=== PATIENT | male | born 1960 | race Caucasian/White ===

== ENCOUNTER 2017-09-02 12:47 | Inpatient (IN) | payer MEDICARE, BC ==
--- NOTE | 2017-09-02 13:28 | ED ---
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 Patient states that he woke up in [place] night felt that he had some chills and started vomiting. Patient states he had a large amount of emesis and is had some discomfort in his throat. He states that he feels that something is tearing or something is stabbing right side of his neck and throat region. Patient states that this prompted him to call 911 and when she went to the emergency Department in [place]. Patient states that he was given pain medication which has helped. He has no difficulty breathing at this time. Former tobacco user he does admit that he has been drinking more than usual. He states he does take large amount of medications for psychiatric disorders, hypertension. (Smooth Skelton) - Related Data Home Medications Medication Instructions Recorded Confirmed Aspirin EC [Ecotrin Low Dose] 81 mg PO DAILY 09/02/17 09/02/17 Calcium Citrate/Vitamin D3 1 tab PO DAILY 09/02/17 09/02/17 [Calcitrate + Vit D Caplet] Folic Acid 1 mg PO DAILY 09/02/17 09/02/17 HYDROcodone/APAP 7.5-325MG [[place] 1 tab PO Q6HR PRN 09/02/17 09/02/17 7.5-325] Iron 27mg 27 mg PO DAILY 09/02/17 09/02/17 Montelukast [Singulair] 10 mg PO DAILY 09/02/17 09/02/17 Naproxen Sodium [Aleve] 220 mg PO DAILY PRN 09/02/17 09/02/17 [place]-3 Acid Ethyl Esters [Lovaza] 2 gm PO BID 09/02/17 09/02/17 Omeprazole 20 mg PO BID 09/02/17 09/02/17 QUEtiapine [SEROquel] 200 mg PO HS 09/02/17 09/02/17 Ranitidine HCl 150 mg PO AC-BRKFST 09/02/17 09/02/17 Thermotabs 1 tab PO DAILY 09/02/17 09/02/17 Venlafaxine HCl [Effexor XR] 150 mg PO QAM 09/02/17 09/02/17 clonazePAM [KlonoPIN] 0.5 mg PO Q8H PRN 09/02/17 09/02/17 lamoTRIgine [LaMICtal] 150 mg PO BID 09/02/17 09/02/17 traMADol HCL [Ultram] 50 mg PO Q6HR PRN 09/02/17 09/02/17 Allergies Allergy/AdvReac Type Severity Reaction Status Date / Time No Known Allergies Allergy Verified 09/02/17 14:51 Review of Systems ROS Other: All systems not noted in ROS Statement are negative. <Smooth Skelton - Last Filed: 09/02/17 14:14> ROS Other: All systems not noted in ROS Statement are negative. <Jett Villalobos - Last Filed: 09/03/17 21:08> ROS Statement: Those systems with pertinent positive or pertinent negative responses have been documented in the HPI. Past Medical History Past Medical History: COPD, CVA/TIA, GERD/Reflux, Osteoarthritis (OA) Additional Past Medical History / Comment(s): Patent foramen ovale, distolyic disfunction, factor IV, spontaneous pneumo History of Any Multi-Drug Resistant Organisms: None Reported Past Surgical History: Adenoidectomy, Back Surgery, Joint Replacement, Tonsillectomy Additional Past Surgical History / Comment(s): deviated septum repair Past Psychological History: Anxiety, Bipolar, Depression Smoking Status: Former smoker Past Alcohol Use History: Abuse, Daily, Heavy Past Drug Use History: None Reported <Smooth Skelton - Last Filed: 09/02/17 14:14> General Exam Limitations: no limitations General appearance: alert, in no apparent distress Head exam: Present: atraumatic, normocephalic, normal inspection Eye exam: Present: normal appearance, PERRL, EOMI. Absent: scleral icterus, conjunctival injection, periorbital swelling ENT exam: Present: normal exam, normal oropharynx, mucous membranes moist, TM's normal bilaterally Neck exam: Present: normal inspection, tenderness (Mild tenderness the right anterior/lateral aspect), full ROM. Absent: meningismus, lymphadenopathy Respiratory exam: Present: normal lung sounds bilaterally. Absent: respiratory distress, wheezes, rales, rhonchi, stridor Cardiovascular Exam: Present: regular rate, normal rhythm, normal heart sounds. Absent: systolic murmur, diastolic murmur, rubs, gallop, clicks <Smooth Skelton - Last Filed: 09/02/17 14:14> Vital Signs 09/02/17 09/02/17 12:49 14:32 Temperature 99.1 F 98.7 F Pulse Rate 87 87 Respiratory 18 18 Rate Blood Pressure 150/96 133/93 O2 Sat by Pulse 98 99 Oximetry Medical Decision Making <Smooth Skelton - Last Filed: 09/02/17 14:14> - Lab Data Result diagrams: 09/03/17 07:03 09/03/17 07:03 <Jett Villalobos - Last Filed: 09/03/17 21:08> - Medical Decision Making I saw this patient in conjunction with the physician marketing communications assistant. I performed independent history and physical exam. Agree with case management. Patient's 56-year-old man found to have right sided laryngeal mass after CT at the outside hospital. I discussed case with Dr. Dover who states that the patient probably could be seen in the clinic Sunday morning. I discussed this with the patient, but there is concern about loss of the patient to follow-up, as he does drink quite heavily. Further history from the patient reveals that indeed he may have had something going on in this area for a number of years. He states that he had had an endoscopy with a Dr. De Souza, who has subsequently retired. States that Dr. De Souza would told him that there was a concern about cancer, but the patient did not have further follow-up at that time. In addition there is concern that the patient stops drinking he may develop on DTs, and therefore patient will be admitted on Ativan protocol with consultation for ENT workup. (Jett Villalobos) Disposition <Smooth Skelton - Last Filed: 09/02/17 14:14> <Jett Villalobos - Last Filed: 09/03/17 21:08> Clinical Impression: Hypopharyngeal mass, Alcoholic, Nausea & vomiting Disposition: ADMITTED IP TO THIS HOSP Condition: Stable
[2017-09-02] MEDS ORDERED: NALOXONE 0.4 MG/ML 1 ML VIAL IV PRN ×2 (14:15→15:19)
[2017-09-02] MEDS ORDERED: LORazepam 2 MG/ML INJ IV STA (14:15)
[2017-09-02] MEDS ORDERED: LORazepam 2 MG/ML INJ IV PRN ×6 (14:16→15:45)
[2017-09-02] MEDS: SODIUM CHLORIDE 0.9% 1,000 ML IV SCH (14:31)
[2017-09-02] MEDS ORDERED: ONDANSETRON 4 MG/2 ML VIAL IVP PRN (15:19)
[2017-09-02] MEDS ORDERED: THIAMINE 100 MG/ML 2 ML VIAL IM STA (15:45)
--- NOTE | 2017-09-02 15:45 | P.HPIM ---
History of Present Illness H&P Date: 09/02/17 Chief Complaint: Vomiting and neck pain 56-year-old male presents emergency department via EMS from [facility] because of concern for pharyngeal mass. Patient stated that he woke up in middle of the night last night, felt that he had some chills and started vomiting. Patient describes the vomiting as projectile, forceful and he expelled large amount of emesis when he had it. No hematemesis. He has also been having some intermittent abdominal pain and diarrhea. After he threw up last night he started having severe right neck pain and it was severely difficult for him to swallow anything. In the ER he tried to pass some liquids but he couldn't because of pain. The pain feels like tearing or something is stabbing right side of his neck and throat region He also has been having general shaking and aching. He drinks a pint of vodka every day and his last drink was yesterday. He denied chest pain or shortness of breath. Computed tomography scan of the neck with IV contrast done at [facility] showed bulky right-sided hypopharyngeal/laryngeal mass measuring approximately 5 x 3 x 1.5 cm with its epicenter at the level of the right piriformis sinus. The lesion tracts cephalad into the lower hypopharynx, laterally into the lateral laryngeal wall, caudally into the false cord and probably the true cord as well as also medially into the right side of the epiglottic base. There is also mild focal thickening of the right lateral aspect of the epiglottis. Upper airway and the trachea are widely patent. There is also increased between C6 and C7 vertebral bodies and the posterior wall of the trachea that appears in part to be related to a slightly redundant and thick-walled upper cervical esophagus. There are a few sections on which it appears small fluid bolus stuck in the upper esophagus. That could alternatively be a mass. No cervical lymphadenopathy. At [place] emergency department patient was somewhat agitated and shaky, had to be treated with some Ativan. He was also given some Solu-Medrol 125 mg IV because of the above mass. Review of Systems 12 point review of system performed, negative except HPI Past Medical History Past Medical History: COPD, CVA/TIA, GERD/Reflux, Osteoarthritis (OA) Additional Past Medical History / Comment(s): Patent foramen ovale, distolyic disfunction, factor IV, spontaneous pneumo History of Any Multi-Drug Resistant Organisms: None Reported Past Surgical History: Adenoidectomy, Back Surgery, Joint Replacement, Tonsillectomy Additional Past Surgical History / Comment(s): deviated septum repair Past Psychological History: Anxiety, Bipolar, Depression Smoking Status: Former smoker Past Alcohol Use History: Abuse, Daily, Heavy Past Drug Use History: None Reported Medications and Allergies Home Medications Medication Instructions Recorded Confirmed Type Aspirin EC [Ecotrin Low Dose] 81 mg PO DAILY 09/02/17 09/02/17 History Calcium Citrate/Vitamin D3 1 tab PO DAILY 09/02/17 09/02/17 History [Calcitrate + Vit D Caplet] Folic Acid 1 mg PO DAILY 09/02/17 09/02/17 History HYDROcodone/APAP 7.5-325MG [[place] 1 tab PO Q6HR PRN 09/02/17 09/02/17 History 7.5-325] Iron 27mg 27 mg PO DAILY 09/02/17 09/02/17 History Montelukast [Singulair] 10 mg PO DAILY 09/02/17 09/02/17 History Naproxen Sodium [Aleve] 220 mg PO DAILY PRN 09/02/17 09/02/17 History [place]-3 Acid Ethyl Esters [Lovaza] 2 gm PO BID 09/02/17 09/02/17 History Omeprazole 20 mg PO BID 09/02/17 09/02/17 History QUEtiapine [SEROquel] 200 mg PO HS 09/02/17 09/02/17 History Ranitidine HCl 150 mg PO AC-BRKFST 09/02/17 09/02/17 History Thermotabs 1 tab PO DAILY 09/02/17 09/02/17 History Venlafaxine HCl [Effexor XR] 150 mg PO QAM 09/02/17 09/02/17 History clonazePAM [KlonoPIN] 0.5 mg PO Q8H PRN 09/02/17 09/02/17 History lamoTRIgine [LaMICtal] 150 mg PO BID 09/02/17 09/02/17 History traMADol HCL [Ultram] 50 mg PO Q6HR PRN 09/02/17 09/02/17 History Allergies Allergy/AdvReac Type Severity Reaction Status Date / Time No Known Allergies Allergy Verified 09/02/17 14:51 Physical Exam Vitals: Vital Signs Temp Pulse Resp BP Pulse Ox 09/02/17 14:32 98.7 F 87 18 133/93 99 09/02/17 12:49 99.1 F 87 18 150/96 98 Intake and Output 09/02/17 09/02/17 09/02/17 06:59 14:59 22:59 Other: Weight 88.451 kg Constitutional: No acute distress, conversant, pleasant Eyes:Anicteric sclerae, moist conjunctiva, no lid-lag, PERRLA, ENMT: Oropharynx clear, no erythema, exudates Neck: Severe tenderness in the right side of the neck and submandibular areas. Otherwise neck is supple, FROM, no masses, or JVD, No carotid bruits, No thyromegaly Lungs: Clear to auscultation, Clear to percussion, Normal respiratory effort, no accessory muscle use Cardiovascular: Heart regular in rate and rhythm, No murmurs, gallops, or rubs, No peripheral edema Abdominal: Soft, Nontender, no guarding, rebound or rigidity, Normoactive bowel sounds, No hepatomegaly, No splenomegaly, No palpable mass Skin: Normal temperature, tone, texture, turgor, no induration, No subcutaneous nodules, No rash, lesions, No ulcers Extremities: No digital cyanosis, No clubbing, Pedal pulses intact and symmetrical, Radial pulses intact and symmetrical, No calf tenderness Psychiatric: Alert and oriented to person, place and time, appropriate affect, intact judgement Neuro: Muscles Strength 5/5 in all 4 extremities, Sensation to light touch grossly present throughout, Cranial nerves II-XII grossly intact, no focal sensory deficits Assessment and Plan Plan: #1 Neck mass: Labs and imaging results from the outside facility reviewed Case discussed with ENT in the emergency department, ENT is willing to do a laryngoscopy with biopsy. #2 Dysphagia Unclear if he truly has an upper esophageal mass Consult GI Clear liquid diet for now Swallow evaluation IV fluids #3 EtOH abuse/at risk for delirium tremens [facility] protocol #3 History of TIA, GERD/Reflux, history of diastolic dysfunction/history of osteoporosis/history of factor V Leiden/Osteoarthritis (OA), bipolar disorder/ anxiety: Stable Hold aspirin in anticipation for possible biopsy Resume rest of home medications
[2017-09-02] MEDS ORDERED: THIAMINE 100 MG TAB PO SCH (17:00)
[2017-09-02 17:08] VITALS: BMI 27.1
[2017-09-02] MEDS: THIAMINE 100 MG TAB PO SCH (18:12)
[2017-09-02] MEDS: PANTOPRAZOLE 40 MG TABLET PO SCH (18:12)
--- NOTE | 2017-09-02 18:25 | P.GSCN ---
History of Present Illness Consult date: 09/02/17 Reason for Consult: Throat swelling Requesting physician: Dennis Jackson History of present illness: This is a 56-year-old white male who suffers from fibromyalgia and takes opioids for chronic pain. He also drinks a large amount of alcohol and has had excessive consumption for at least 5 years. Patient tells me that yesterday evening he started having some chills but no throat symptoms and he ate a pizza and drank a pint of vodka. He then started having nausea and vomiting and vomited quite severely. He developed a throat pain in the morning and some difficulty swallowing and with the [facility] for evaluation. X-ray of the neck and CAT scan evaluation shows a swelling and possible mass. I've been asked to consult regarding these findings. The patient tells me that the throat pain is much improved and is able to swallow. He has had issues with heartburn. He is currently being treated for alcohol withdrawal. He did smoke in the past and has a [id number] history of smoking but quit when he was 29 years of age. Review of Systems - Constitutional Reports chronic pain, Reports fatigue, Reports lethargy, Denies anorexia - EENT Ears, nose, mouth and throat: Reports as per HPI - Cardiovascular Reports decreased exercise tolerance, Reports lightheadedness - Respiratory Denies hemoptysis - Gastrointestinal Reports heartburn, Denies coffee ground emesis, Denies excessive gas - Genitourinary Denies flank pain, Denies kidney stones - Musculoskeletal Musculoskeleta Comment(s): osteoporosis - Integumentary Denies boils - Neurological Denies balance difficulties - Psychiatric Denies hallucinations - Endocrine Denies deepening of the voice - Hematologic/Lymphatic Denies easy bleeding - Allergic/Immunologic Denies allergic rhinitis Past Medical History Past Medical History: COPD, CVA/TIA, GERD/Reflux, Osteoarthritis (OA) Additional Past Medical History / Comment(s): Patent foramen ovale, distolyic disfunction, factor IV, spontaneous pneumo History of Any Multi-Drug Resistant Organisms: None Reported Past Surgical History: Adenoidectomy, Back Surgery, Joint Replacement, Tonsillectomy Additional Past Surgical History / Comment(s): deviated septum repair Past Psychological History: Anxiety, Bipolar, Depression Smoking Status: Former smoker Past Alcohol Use History: Abuse, Daily, Heavy Past Drug Use History: None Reported Medications and Allergies Home Medications Medication Instructions Recorded Confirmed Type Aspirin EC [Ecotrin Low Dose] 81 mg PO DAILY 09/02/17 09/02/17 History Calcium Citrate/Vitamin D3 1 tab PO DAILY 09/02/17 09/02/17 History [Calcitrate + Vit D Caplet] Folic Acid 1 mg PO DAILY 09/02/17 09/02/17 History HYDROcodone/APAP 7.5-325MG [[place] 1 tab PO Q6HR PRN 09/02/17 09/02/17 History 7.5-325] Iron 27mg 27 mg PO DAILY 09/02/17 09/02/17 History Montelukast [Singulair] 10 mg PO DAILY 09/02/17 09/02/17 History Naproxen Sodium [Aleve] 220 mg PO DAILY PRN 09/02/17 09/02/17 History [place]-3 Acid Ethyl Esters [Lovaza] 2 gm PO BID 09/02/17 09/02/17 History Omeprazole 20 mg PO BID 09/02/17 09/02/17 History QUEtiapine [SEROquel] 200 mg PO HS 09/02/17 09/02/17 History Ranitidine HCl 150 mg PO AC-BRKFST 09/02/17 09/02/17 History Thermotabs 1 tab PO DAILY 09/02/17 09/02/17 History Venlafaxine HCl [Effexor XR] 150 mg PO QAM 09/02/17 09/02/17 History clonazePAM [KlonoPIN] 0.5 mg PO Q8H PRN 09/02/17 09/02/17 History lamoTRIgine [LaMICtal] 150 mg PO BID 09/02/17 09/02/17 History traMADol HCL [Ultram] 50 mg PO Q6HR PRN 09/02/17 09/02/17 History Allergies Allergy/AdvReac Type Severity Reaction Status Date / Time No Known Allergies Allergy Verified 09/02/17 14:51 Surgical - Exam Osteopathic Statement: *. No significant issues noted on an osteopathic structural exam other than those noted in the History and Physical/Consult. Vital Signs Temp Pulse Resp BP Pulse Ox 99.1 F 87 18 150/96 98 09/02/17 12:49 09/02/17 12:49 09/02/17 12:49 09/02/17 12:49 09/02/17 12:49 - General well developed, well nourished, no distress - Eyes PERRL, normal ocular movement - ENT normal pinna, normal nares, normal mucosa, no hearing loss, no congestion - Neck no masses, no bruits, trachea midline, no lymphadectomy, no venous distension - Respiratory normal expansion, normal respiratory effort - Abdomen Abdomen: soft, tender - Integumentary no rash, no growths - Neurologic normal coordination, normal sensation - Musculoskeletal normal gait - Psychiatric oriented to time, oriented to person, oriented to place, speech is normal, memory intact Assessment and Plan (1) Hypopharyngitis Current Visit: Yes Status: Acute Code(s): J02.9 - ACUTE PHARYNGITIS, UNSPECIFIED SNOMED Code(s): 568367963 (2) Dysphagia Current Visit: Yes Status: Acute Code(s): R13.10 - DYSPHAGIA, UNSPECIFIED SNOMED Code(s): 47791542 Plan: Examination including a flexible laryngoscopy reveals some arytenoid swelling. The swelling is erythematous. There is no evidence of a tumor or mass. He tells me that his throats feeling much better and most likely the swelling was from his severe vomiting. I'm recommending watchful waiting. I've given him my card I told him I would like to see him in the office as outpatient for a repeat examination of the throat. At this time, there is no discrete tumors or masses and biopsy is not recommended. A repeat examination on outpatient basis is strongly recommended. Time with Patient: Greater than 30
--- NOTE | 2017-09-02 18:27 | P.OP ---
Date of Procedure: 09/02/17 Preoperative Diagnosis: Hypopharyngeal mass seen on computed tomography scan Postoperative Diagnosis: Arytenoid swelling right side Procedure(s) Performed: Flexible nasopharyngeal laryngoscopy Anesthesia: none Surgeon: Trenton Dover Estimated Blood Loss (ml): 0 Pathology: none sent Condition: stable Disposition: PACU Indications for Procedure: Patient had severe vomiting last night and had throat complaints after vomiting. CAT scan of the neck revealed a possible tumor. Examination is recommended Operative Findings: Patient had a large amount of swelling to the right arytenoid. There is no evidence of a tumor or mass. I was unable to evaluate the esophagus. Description of Procedure: This patient was placed in a sitting position. On the NF type GP nasopharyngoscope was inserted into the patient's right nares we followed the floor the nose into the nasopharynx and oropharynx and hypopharynx. There was some arytenoid swelling on the right along with hyperemia. No discrete tumors or masses were noted of the nasopharynx oropharynx or hypopharynx. The swelling appeared to be secondary to his reflux.
[2017-09-02] MEDS: clonazePAM 0.5 MG TAB PO PRN (21:53)
[2017-09-02] MEDS: QUEtiapine 200 MG TAB PO SCH (21:54)
[2017-09-02] MEDS: lamoTRIgine 100 MG TAB PO SCH (21:54)
[2017-09-03] MEDS: SODIUM CHLORIDE 0.9% 1,000 ML IV SCH ×2 (03:11→16:23)
[2017-09-03] MEDS: HYDROcodone/APAP 7.5-325MG 1 EACH TAB PO PRN ×2 (07:17→21:55)
[2017-09-03] MEDS ORDERED: FAMOTIDINE 20 MG TAB PO SCH (07:30)
[2017-09-03 08:06] LABS: Basophils % (A) 0 %; Eosinophils % (A) 0 %; HCT 36.5 % (39.0-53.0); HGB 12.6 gm/dL (13.0-17.5); Lymphocytes # (A) 0.7 k/uL (1.0-4.8); Lymphocytes % (A) 12 %; MCH 31.2 pg (25.0-35.0); MCHC 34.6 g/dL (31.0-37.0); MCV 90.2 fL (80.0-100.0); Mean Platelet Volume 7.2; Monocytes # (A) 0.3 k/uL (0-1.0); Monocytes % (A) 6 %; Neutrophils # (A) 4.3 k/uL (1.3-7.7); Neutrophils % (A) 80 %; Platelet Count 166 k/uL (150-450); RBC 4.05 m/uL (4.30-5.90); RDW 12.1 % (11.5-15.5); WBC 5.3 k/uL (3.8-10.6)
[2017-09-03 08:12] LABS: Partial Thromboplastin Time 24.4 sec (22.0-30.0); Prothrombin Time 9.7 sec (9.0-12.0)
[2017-09-03 08:25] LABS: ALT 30 U/L (21-72); AST 22 U/L (17-59); Albumin 3.2 g/dL (3.5-5.0); Alkaline Phosphatase 54 U/L (38-126); Amylase 37 U/L (30-110); Anion Gap 10 mmol/L; Blood Urea Nitrogen 12 mg/dL (9-20); Carbon Dioxide 26 mmol/L (22-30); Chloride 109 mmol/L (98-107); Glucose 108 mg/dL (74-99); Lipase 32 U/L (23-300); Magnesium 2.2 mg/dL (1.6-2.3); Phosphorus 2.3 mg/dL (2.5-4.5); Potassium 3.5 mmol/L (3.5-5.1); Sodium 145 mmol/L (137-145); Total Bilirubin 0.7 mg/dL (0.2-1.3); Total Protein 5.5 g/dL (6.3-8.2)
[2017-09-03] MEDS ORDERED: MONTELUKAST 10 MG TAB PO SCH (09:00)
[2017-09-03] MEDS: VENLAFAXINE HCL ER 150 MG CAP PO SCH (10:13)
[2017-09-03] MEDS: lamoTRIgine 100 MG TAB PO SCH ×2 (10:13→21:55)
[2017-09-03] MEDS: PANTOPRAZOLE 40 MG TABLET PO SCH ×2 (10:14→16:25)
[2017-09-03] MEDS: FOLIC ACID 1 MG TAB PO SCH (10:14)
[2017-09-03] MEDS: THIAMINE 100 MG TAB PO SCH ×2 (10:15→16:24)
--- NOTE | 2017-09-03 11:08 | P.PN ---
Subjective Progress Note Date: 09/03/17 Principal diagnosis: Dysphagia Doing better today, neck pain is improving. He is currently able to swallow liquids. Objective - Vital Signs Vital signs: Vital Signs Temp 97.6 F 09/03/17 06:48 Pulse 83 09/03/17 06:48 Resp 18 09/03/17 06:48 BP 109/74 09/03/17 06:48 Pulse Ox 97 09/03/17 06:48 Intake & Output 09/02/17 09/03/17 09/03/17 18:59 06:59 18:59 Intake Total 1200 Balance 1200 Weight 88.4 kg Intake: Intake, IV Titration 600 Amount Sodium Chloride 0.9% 1, 600 000 ml @ 75 mls/hr IV . [id number] SUSAN Rx#:[id number] Oral 600 Other: # Voids 1 - Exam Constitutional: No acute distress, conversant, pleasant Eyes:Anicteric sclerae, moist conjunctiva, no lid-lag, PERRLA, ENMT: Oropharynx clear, no erythema, exudates Neck: Supple, FROM, no masses, or JVD, No carotid bruits, No thyromegaly Lungs: Clear to auscultation, Clear to percussion, Normal respiratory effort, no accessory muscle use Cardiovascular: Heart regular in rate and rhythm, No murmurs, gallops, or rubs, No peripheral edema Abdominal: Soft, Nontender, no guarding, rebound or rigidity, Normoactive bowel sounds, No hepatomegaly, No splenomegaly, No palpable mass Skin: Normal temperature, tone, texture, turgor, no induration, No subcutaneous nodules, No rash, lesions, No ulcers Extremities: No digital cyanosis, No clubbing, Pedal pulses intact and symmetrical, Radial pulses intact and symmetrical, No calf tenderness Psychiatric: Alert and oriented to person, place and time, appropriate affect, intact judgement Neuro: Muscles Strength 5/5 in all 4 extremities, Sensation to light touch grossly present throughout, Cranial nerves II-XII grossly intact, no focal sensory deficits - Labs CBC & Chem 7: 09/03/17 07:03 09/03/17 07:03 Labs: Abnormal Lab Results - Last 24 Hours (Table) 09/03/17 09/03/17 Range/Units 07:03 07:03 RBC 4.05 L (4.30-5.90) m/uL Hgb 12.6 L (13.0-17.5) gm/dL Hct 36.5 L (39.0-53.0) % Lymphocytes # 0.7 L (1.0-4.8) k/uL Chloride 109 H (98-107) mmol/L Creatinine 0.58 L (0.66-1.25) mg/dL Glucose 108 H (74-99) mg/dL Calcium 8.0 L (8.4-10.2) mg/dL Phosphorus 2.3 L (2.5-4.5) mg/dL Total Protein 5.5 L (6.3-8.2) g/dL Albumin 3.2 L (3.5-5.0) g/dL Assessment and Plan Plan: #1 Neck mass/Dysphagia: S/P laryngoscopy by ENT, right arytenoid swelling was found. No tumor. D/W Dr. Price, Re the need for upper endoscopy to clarify the CT scan findings of the upper esophagus/pharynx area. Continue clear liquid diet for now Swallow evaluation IV fluids #3 EtOH abuse/at risk for delirium tremens [facility] protocol #3 History of TIA, GERD/Reflux, history of diastolic dysfunction/history of osteoporosis/history of factor V Leiden/Osteoarthritis (OA), bipolar disorder/ anxiety: Stable Continue to hold aspirin for now in light of possible hematoma in the right arytenoid area. Resume rest of home medications
--- NOTE | 2017-09-03 12:13 | FL ---
EXAMINATION TYPE: FL barium swallow w video DATE OF EXAM: 09/03/2017 MODIFIED SWALLOW / DEGLUTITION STUDY CLINICAL HISTORY: Dysphagia. TECHNIQUE: Deglutition study is performed utilizing thin liquid barium, honey and nectar thick liqui d barium, barium thick applesauce, and barium coated cracker. A total of 1 minute 54 seconds of fluor oscopic time was utilized during procedure. Approximately 8 cine sequences were recorded. 0 images ar e saved to PACS. COMPARISON: None. FINDINGS: The oral and pharyngeal phases show satisfactory initiation with all modalities tested. The re is some poor hypopharyngeal motility identified. Region of epiglottis and vallecula appears within normal limits. Normal mastication is seen with solid modalities tested. There is no evidence of pen etration or aspiration with any modality tested. Mild pharyngeal residuals were noted. IMPRESSION: No penetration or aspiration observed. Please refer to speech therapist notes for furthe r details if necessary.
[2017-09-03] MEDS: clonazePAM 0.5 MG TAB PO PRN (21:55)
[2017-09-03] MEDS: MONTELUKAST 10 MG TAB PO SCH (21:56)
[2017-09-03] MEDS: QUEtiapine 200 MG TAB PO SCH (21:56)
[2017-09-03] MEDS: FAMOTIDINE 20 MG TAB PO SCH (21:56)
[2017-09-04] MEDS: SODIUM CHLORIDE 0.9% 1,000 ML IV SCH ×3 (08:47→21:46)
[2017-09-04 11:01] LABS: HCT 38.3 % (39.0-53.0); MCH 31.6 pg (25.0-35.0); Mean Platelet Volume 7.5; Platelet Count 151 k/uL (150-450); RBC 4.12 m/uL (4.30-5.90); RDW 12.2 % (11.5-15.5); WBC 3.9 k/uL (3.8-10.6)
[2017-09-04 11:19] LABS: Anion Gap 8 mmol/L; Blood Urea Nitrogen 9 mg/dL (9-20); Calcium 8.3 mg/dL (8.4-10.2); Carbon Dioxide 26 mmol/L (22-30); Chloride 111 mmol/L (98-107); Glucose 96 mg/dL (74-99); Potassium 4.2 mmol/L (3.5-5.1); Sodium 145 mmol/L (137-145)
--- NOTE | 2017-09-04 13:48 | P.PN ---
Subjective Progress Note Date: 09/04/17 Principal diagnosis: Patient is seen in follow-up for dysphagia and alcohol abuse Patient is seen and examined today, he is nothing by mouth overnight, still reports some neck pain and dysphagia. He told me today about his history of Ashley's esophagus. He denies any further vomiting. Denies any muscle weakness. Denies any chest pain or trouble breathing Objective - Vital Signs Vital signs: Vital Signs Temp 97.4 F L 09/04/17 07:43 Pulse 56 L 09/04/17 07:43 Resp 16 09/04/17 07:43 BP 113/68 09/04/17 07:43 Pulse Ox 97 09/04/17 07:43 Intake & Output 09/03/17 09/04/17 09/04/17 18:59 06:59 18:59 Intake Total 600 600 Output Total 800 Balance -200 600 Intake: Intake, IV Titration 600 600 Amount Sodium Chloride 0.9% 1, 600 600 000 ml @ 75 mls/hr IV . [id number] SUSAN Rx#:[id number] Output: Urine 800 Other: # Voids 1 1 - Exam Constitutional: vital signs stable, Not in acute distress, pleasant, conversant , throat exam is unremarkable with no pharyngeal erythema Lungs: Clear to auscultation bilaterally, clear to percussion, normal respiratory effort Cardiovascular: Regular rate and rhythm, no murmurs, no gallops, no rubs, no peripheral edema Gastrointestinal: Soft, no tenderness to palpation, no palpable hepatosplenomegally, bowel sounds positive Extremities: No digital cyanosis or clubbing, peripheral pulses palpable and equal over bilateral radial arteries and dorsalis pedis artery, no calf muscle tenderness Psych: Alert, oriented to place, person and time, appropriate affect, intact judgment - Labs CBC & Chem 7: 09/04/17 10:45 09/04/17 10:45 Labs: Abnormal Lab Results - Last 24 Hours (Table) 09/04/17 09/04/17 Range/Units 10:45 10:45 RBC 4.12 L (4.30-5.90) m/uL Hct 38.3 L (39.0-53.0) % Chloride 111 H (98-107) mmol/L Creatinine 0.60 L (0.66-1.25) mg/dL Calcium 8.3 L (8.4-10.2) mg/dL Phosphorus 2.0 L (2.5-4.5) mg/dL Assessment and Plan Assessment: 56-year-old male with history of Ashley's esophagus and alcohol abuse presented to the hospital as a transfer from [facility] due to finding of pharyngeal mass. Patient was evaluated by ENT who recommended outpatient follow-up, however GI wanted to perform an endoscopy with EGD to rule out any pharyngeal hematoma. Patient does admit to forceful repeated projectile vomiting prior to presentation due to alcohol abuse . Resulting in severe right-sided neck pain and dysphagia and odynophagia. Computed tomography scan with IV contrast of the neck at [facility] suggested bulky right-sided pharyngeal/laryngeal mass measuring 5 x 3 x 1.5. cm Plan: #Hypo-pharyngitis, most likely secondary to irritation from repeated vomiting #History of Ashley's esophagus #Dysphagia and odynophagia ENT recommending outpatient follow-up GI is following closely, awaiting EGD today with possible biopsy Computed tomography scan findings of upper esophagus. Pharynx area suggested some swelling, rule out hematoma per GI Nothing by mouth for now awaiting procedure Once procedure done and patient is cleared by GI, will advance his diet in preparation for discharge tomorrow Patient passed swallow eval earlier during this admission #Hypophosphatemia due to poor by mouth intake and alcohol abuse Neutra-Phos 3 times a day Daily phosphorus level #Alcohol abuse, Patient counseled to quit alcohol Withdrawal precautions Folic acid and thiamine Seizure and fall precautions # History of TIA, GERD/Reflux, history of diastolic dysfunction/history of osteoporosis/history of factor V Leiden/Osteoarthritis (OA), bipolar disorder/ anxiety: Stable Continue to hold aspirin for now in light of possible hematoma in the right arytenoid area. Resume rest of home medications #DVT prophylaxis Mechanical until pharyngeal hematoma as ruled out Anticipated discharge in 24 hours
[2017-09-04] MEDS ORDERED: IV FLUID CONTINUATION 1,000 ML IV ONE (14:11)
[2017-09-04] MEDS ORDERED: METHOHEXITAL SODIUM 500 MG VIAL ONE (14:13)
[2017-09-04] MEDS ORDERED: PROPOFOL 10 MG/ML 20 ML VIAL IV ONE (14:13)
[2017-09-04] MEDS ORDERED: fentaNYL (PF) 50 MCG/ML 2 ML AMP ONE ×2 (14:13)
[2017-09-04] MEDS ORDERED: LIDOCAINE 1% INJ 10MG/ML (20 ML MDV) ONE ×2 (14:13)
--- NOTE | 2017-09-04 14:48 | P.PCN ---
Date of Procedure: 09/04/17 Procedure(s) Performed: Procedure: Esophagogastroduodenoscopy and biopsy. Preoperative diagnosis: History of intractable vomiting, abnormal CT of the neck and Ashley's esophagus. Postoperative diagnosis: 1. Sliding hiatal hernia with short Ashley's esophagus but no evidence of esophagitis or strictures. 2. Mild antral gastritis. 3. Biopsies obtained from the duodenum, antrum and esophagus proximal and distal to the GE junction. Preparation and sedation: Were provided by anesthesia. Brief clinical history: The patient is a 56-year-old male who presented with main complaint of intractable nausea and vomiting that went on for 3-4 hours. At [facility] where he presented because of severe throat pain a computed tomography scan of the neck showed swelling and possible mass. He was evaluated here by ENT after he was transferred to [facility] and his evaluation showed large amount of swelling of the right arytenoid was noted but no evidence of tumor or mass. The patient has history of Ashley's esophagus and his last exam was around 2 years ago. This evaluation is to assess for dysphagia and rule out other his presenting symptoms. Other details are summarized in the history and physical and dictated consultations and progress notes. Procedure: With the patient on his left lateral decubitus position and after informed consent and adequate sedation, I passed the Olympus-GIF 160 video upper endoscope through the cricopharyngeus down the esophagus. GE junction was around 36 cm from the incisors and the tubular esophagus continues for another 2-3 cm defining a segment of Ashley's esophagus. There was a sliding hiatal hernia then the endoscope was passed to the rest of the stomach which was insufflated with air and inspected in detail including the retroflex view in the cardia. There was some mottling and erythema in the antrum but no ulcers or erosions. Pyloric channel, duodenal bulb, post bulbar area and descending duodenum appeared within normal limits. Because of his symptoms, I obtained biopsies from the duodenum antrum and esophagus both proximal and distal to the GE junction then the endoscope was withdrawn. The patient tolerated the procedure well. Plan: The patient was reassured. Will await biopsy results. In the meantime, will allow clear liquids and advanced to regular diet as tolerated.
[2017-09-04] MEDS: THIAMINE 100 MG TAB PO SCH ×2 (15:37→17:24)
[2017-09-04] MEDS: PANTOPRAZOLE 40 MG TABLET PO SCH ×2 (15:37→17:23)
[2017-09-04] MEDS: POTAS-SOD-PHOS 278-164-250 MG 1 EACH PACKET PO SCH ×3 (15:37→21:43)
[2017-09-04] MEDS: lamoTRIgine 100 MG TAB PO SCH ×3 (15:37→21:39)
[2017-09-04] MEDS: VENLAFAXINE HCL ER 150 MG CAP PO SCH (16:02)
[2017-09-04] MEDS: FOLIC ACID 1 MG TAB PO SCH (16:02)
[2017-09-04] MEDS ORDERED: VENLAFAXINE HCL ER 150 MG CAP PO STA (16:16)
[2017-09-04] MEDS: FAMOTIDINE 20 MG TAB PO SCH (21:43)
[2017-09-04] MEDS: QUEtiapine 200 MG TAB PO SCH (21:43)
[2017-09-04] MEDS: MONTELUKAST 10 MG TAB PO SCH (21:43)
[2017-09-04] MEDS: HYDROcodone/APAP 7.5-325MG 1 EACH TAB PO PRN (22:07)
[2017-09-04] MEDS: clonazePAM 0.5 MG TAB PO PRN (22:09)
[2017-09-05 07:14] LABS: Anion Gap 9 mmol/L; Blood Urea Nitrogen 9 mg/dL (9-20); Calcium 8.7 mg/dL (8.4-10.2); Carbon Dioxide 25 mmol/L (22-30); Chloride 108 mmol/L (98-107); Glucose 87 mg/dL (74-99); Phosphorus 3.6 mg/dL (2.5-4.5); Potassium 4.1 mmol/L (3.5-5.1); Sodium 142 mmol/L (137-145)
[2017-09-05 08:17] VITALS: BP 104/70; PULSE 58; RESP 20; TEMP 97.8
[2017-09-05] MEDS ORDERED: VENLAFAXINE HCL ER 150 MG CAP PO SCH (09:00)
[2017-09-05] MEDS: PANTOPRAZOLE 40 MG TABLET PO SCH (09:35)
[2017-09-05] MEDS: THIAMINE 100 MG TAB PO SCH (09:35)
[2017-09-05] MEDS: POTAS-SOD-PHOS 278-164-250 MG 1 EACH PACKET PO SCH (09:35)
[2017-09-05] MEDS: FOLIC ACID 1 MG TAB PO SCH (09:35)
[2017-09-05] MEDS: lamoTRIgine 100 MG TAB PO SCH (09:35)
[2017-09-05] MEDS: HYDROcodone/APAP 7.5-325MG 1 EACH TAB PO PRN (09:38)
--- NOTE | 2017-09-05 12:10 | P.DS ---
Providers Date of admission: 09/04/17 14:40 Attending physician: Dennis Jackson MD Consults: 09/02/17 14:15 Consult Physician Stat Consulting Provider: Trenton Dover Reason/Comments: Hypopharyngeal mass Do you want consulting provider notified?: Yes Primary care physician: [facility] Course: Final diagnosis at discharge 1. Sliding hiatal hernia with short Ashley's esophagus but no evidence of esophagitis or strictures. 2. Mild antral gastritis. 3. Biopsies obtained from the duodenum, antrum and esophagus proximal and distal to the GE junction. 4 Hypo-pharyngitis, most likely secondary to irritation from repeated vomiting 5. Hypophosphatemia 6. Alcohol abuse Secondary diagnoses History of TIA GERD History of factor V Leiden Osteoarthritis Hospital course 56-year-old male with history of Ashley's esophagus and alcohol abuse presented to the hospital as a transfer from [facility] due to finding of pharyngeal mass. Patient was evaluated by ENT which showed right arytenoid swelling, however GI wanted to perform an endoscopy with EGD to rule out any pharyngeal hematoma. Patient does admit to forceful repeated projectile vomiting prior to presentation due to alcohol abuse . Resulting in severe right-sided neck pain and dysphagia and odynophagia. Computed tomography scan with IV contrast of the neck at [facility] suggested bulky right-sided pharyngeal/laryngeal mass measuring 5 x 3 x 1.5. cm GI service did perform the EGD, showed short Ashley's esophagus no evidence of esophagitis or strictures recommended outpatient follow-up. Patient responded well to supportive care. Patient seen and examined on day of discharge, tolerating regular diet, denies any fevers or chills, denies any chest pain or trouble breathing. Constitutional: vital signs stable, Not in acute distress, pleasant, conversant Lungs: Clear to auscultation bilaterally, clear to percussion, normal respiratory effort Cardiovascular: Regular rate and rhythm, no murmurs, no gallops, no rubs, no peripheral edema Gastrointestinal: Soft, no tenderness to palpation bowel sounds positive Extremities: No digital cyanosis or clubbing, peripheral pulses palpable and equal , no calf muscle tenderness Psych: Alert, oriented to place, person and time, appropriate affect, intact judgment Discharge home in stable clinical condition Patient counseled to abstain from alcohol Prescription for his home medications provided Follow-up with PCP and GI 30 minutes were spent discharging this patient, and more than 50% of the time was spent in counseling the patient and family and in coordinating care. Pertinent Studies: EGD showed short Ashley's esophagus without stricture Patient Condition at Discharge: Stable Plan - Discharge Summary Discharge Rx Participant: Yes New Discharge Prescriptions: New Pantoprazole [Protonix] 40 mg PO AC-BID #60 tablet.dr Rodriguez [facility]-3 Acid Ethyl Esters [Lovaza] 2 gm PO BID clonazePAM [KlonoPIN] 0.5 mg PO Q8H PRN PRN Reason: Anxiety Aspirin EC [Ecotrin Low Dose] 81 mg PO DAILY #30 tablet. lamoTRIgine [LaMICtal] 150 mg PO BID #60 tablet Montelukast [Singulair] 10 mg PO DAILY #30 tab QUEtiapine [SEROquel] 200 mg PO HS #30 tab Venlafaxine HCl [Effexor XR] 300 mg PO QAM #30 cap.er.24h Discontinued Naproxen Sodium [Aleve] 220 mg PO DAILY PRN PRN Reason: Pain HYDROcodone/APAP 7.5-325MG [[place] 7.5-325] 1 tab PO Q6HR PRN PRN Reason: Pain Folic Acid 1 mg PO DAILY traMADol HCL [Ultram] 50 mg PO Q6HR PRN PRN Reason: Pain Ranitidine HCl 150 mg PO AC-BRKFST Omeprazole 20 mg PO BID Thermotabs 1 tab PO DAILY Iron 27mg 27 mg PO DAILY Calcium Citrate/Vitamin D3 [Calcitrate + Vit D Caplet] 1 tab PO DAILY Discharge Medication List [facility]-3 Acid Ethyl Esters [Lovaza] 2 gm PO BID 09/02/17 [History] clonazePAM [KlonoPIN] 0.5 mg PO Q8H PRN 09/02/17 [History] Aspirin EC [Ecotrin Low Dose] 81 mg PO DAILY #30 tablet. 09/05/17 [Rx] Montelukast [Singulair] 10 mg PO DAILY #30 tab 09/05/17 [Rx] Pantoprazole [Protonix] 40 mg PO AC-BID #60 tablet. 09/05/17 [Rx] QUEtiapine [SEROquel] 200 mg PO HS #30 tab 09/05/17 [Rx] Venlafaxine HCl [Effexor XR] 300 mg PO QAM #30 cap.er.24h 09/05/17 [Rx] lamoTRIgine [LaMICtal] 150 mg PO BID #60 tablet 09/05/17 [Rx] Follow up Appointment(s)/Referral(s): Ivania Jaime DO [Primary Care Provider] - 1-2 days Víctor Miller MD [STAFF PHYSICIAN] - 10 Days Patient Instructions/Handouts: Ashley Esophagus (DC) Activity/Diet/Wound Care/Special Instructions: activity and diet as tolerated Discharge Disposition: HOME SELF-CARE
== END 2017-09-05 13:30 | disposition home or self-care (01) | DRG 153 ==
LOC: EC 12:47 → INTOOBSV 14:15 → 5MS5E 14:15 → 5ONC 09-03 23:02 → OBSVTOIN 09-04 14:40
PROVIDERS: ADMIT Internal Medicine; ATTEND Internal Medicine
PROC: 0CJS8ZZ Inspection of Larynx, Via Natural or Artificial Opening Endoscopic (ICD-10-PCS; 2017-09-02)
PROC: 0DB78ZX Excision of Stomach, Pylorus, Via Natural or Artificial Opening Endoscopic, Diagnostic (ICD-10-PCS; 2017-09-04)
PROC: 0DB58ZX Excision of Esophagus, Via Natural or Artificial Opening Endoscopic, Diagnostic (ICD-10-PCS; 2017-09-04)
PROC: 0DB98ZX Excision of Duodenum, Via Natural or Artificial Opening Endoscopic, Diagnostic (ICD-10-PCS; principal; 2017-09-04 08:10)
DX: J06.0 Acute laryngopharyngitis (principal); D68.51 Activated protein C resistance; Q21.1 Atrial septal defect; E83.39 Other disorders of phosphorus metabolism; F41.9 Anxiety disorder, unspecified; G89.29 Other chronic pain; I10 Essential (primary) hypertension; J44.9 Chronic obstructive pulmonary disease, unspecified; K21.9 Gastro-esophageal reflux disease without esophagitis; K22.70 Barrett's esophagus without dysplasia; K29.60 Other gastritis without bleeding; K44.9 Diaphragmatic hernia without obstruction or gangrene; M19.90 Unspecified osteoarthritis, unspecified site; M79.7 Fibromyalgia; M81.0 Age-related osteoporosis without current pathological fracture; R11.12 Projectile vomiting; F32.9 Major depressive disorder, single episode, unspecified; F10.10 Alcohol abuse, uncomplicated; R13.10 Dysphagia, unspecified; Z86.73 Personal history of transient ischemic attack (TIA), and cerebral infarction without residual deficits; Z87.891 Personal history of nicotine dependence; Z79.899 Other long term (current) drug therapy; Z79.82 Long term (current) use of aspirin; Z96.60 Presence of unspecified orthopedic joint implant
CPT/HCPCS: 43239; 74230; 80048; 80053; 82150; 83690; 83735; 84100; 85025; 85027; 85610; 85730; 88305; 96374; 99285